=== PATIENT | female | born 1955 | race Caucasian/White ===

== ENCOUNTER 2018-11-17 04:48 | Inpatient (IN) ==
--- NOTE | 2018-10-31 08:58 | PAT Medication Instructions ---
Medication Instructions Date of Service October 31, 2018 Home Medications diclofenac sodium 75 mg PO BID diphenhydramine HCl [Benadryl] 25 - 50 mg PO HS estradiol 1 mg PO QAM levothyroxine 100 mcg PO QAM multivitamin 1 tab PO QAM omega 1-xhx-qhz-fish oil [Fish Oil] 1 cap PO BID turmeric 2,000 mg PO QAM ASK your surgeon for instructions diclofenac sodium 75 mg PO BID STOP taking 2 weeks before surgery omega 7-gfr-mrw-fish oil [Fish Oil] 1 cap PO BID turmeric 2,000 mg PO QAM DO NOT take the morning of surgery multivitamin 1 tab PO QAM Take morning of surgery With a small sip of water, OTHERWISE NOTHING TO EAT OR DRINK AFTER MIDNIGHT: estradiol 1 mg PO QAM levothyroxine 100 mcg PO QAM Take evening before surgery diphenhydramine HCl [Benadryl] 25 - 50 mg PO HS Other Notes If you have any questions please call us at [phone] or [phone] or [phone] or [phone]
--- NOTE | 2018-10-31 11:16 | Anesthesiology Consultation ---
Date of Service October 31, 2018 Assessment & Plan (1) Encounter for pre-operative examination: Cardiology clearance 10/30/2018: "Patient is asymptomatic cardiac kaur (never had chest pain, dyspnea, syncope, Hx of MN or CHF). 12 lead ECG shows sinus bradycardia with questionable septal infarct (may be due to lead placement). Given that patient's functional status is good and no symptoms suggested of ischemia or heart failure, patient is low risk for MACE. Will not recommend any further cardiac evaluation. Her Revised Cardiac Risk Index is 0.4%." PCP Clearance 10/30/2018: "Lorena is medically cleared from cardiology standpoint and is cleared for surgery." Chart Review Chart Review: Acceptable Risk for Surgery and Patient seen in Pre Admission Testing Teaching & Discussion Instructed NPO after midnight before surgery, except medications with 15 cc of water. Medication instructions provided according to the PAT guidelines. History Surgery Operation Date: 11/17/18 07:30 Proposed Procedures p Left Total Hip Arthroplasty - Kenneth Nath DO Height/Weight Height: 5 ft 8 in Weight: 68.3 kg Allergies Allergy/AdvReac Type Severity Reaction Status Date / Time No Known Allergies Allergy Verified 10/18/18 08:34 Medications Home Medications Medication Instructions Recorded Confirmed Last Taken diclofenac sodium 75 mg PO BID 10/18/18 10/18/18 Unknown diphenhydramine HCl [Benadryl] 25 - 50 mg PO HS 10/18/18 10/18/18 Unknown estradiol 1 mg PO QAM 10/18/18 10/18/18 Unknown levothyroxine 100 mcg PO QAM 10/18/18 10/18/18 Unknown multivitamin 1 tab PO QAM 10/18/18 10/18/18 Unknown omega 7-fvh-cui-fish oil [Fish Oil] 1 cap PO BID 10/18/18 10/18/18 Unknown turmeric 2,000 mg PO QAM 10/18/18 10/18/18 Unknown Past Medical History Medical History Abnormal EKG Done at PCP clearance -- pt sent for cardio clearance same day because of this. Cardiology reviewed EKG, felt possibly due to lead placement, no need for further cardiac evaluation due to lack of cardiopulmonary symptoms. Arthritis Cancer H/O CERVICAL, S/P TOTAL HYSTERECTOMY Hyperlipidemia Hypothyroidism Exercise / Class Metabolic Activity II 4-5 Yardwork/Stairs/Walk up hill (denies CP or SOB with activity/stairs) Past Family History Family History Brother Family hx of colon cancer Grandfather (Maternal) Family hx of colon cancer Father Family history of diabetes mellitus Past Surgical History Surgical History History of carpal tunnel release LEFT History of colonoscopy History of hysterectomy Past Anesthesia History No Hx of Anesthesia Complications and No Family Hx of Anesthesia Complications AND "SLOW TO WAKE UP"-WITH HYSTERECTOMY, SOME NAUSEA. History of PONV No Hx of PONV (nausea only, single episode) and Hx of Motion Sickness Social History Smoking Status: Never smoker Do You Dip or Chew Tobacco: No Hx Alcohol Use: No Hx Substance Use: No substance use type: does not use Review of Systems Pt denies any recent chest pain, shortness of breath, palpitations, cough, fever or URI. Physical Exam Vital Signs BP: 130/79 P: 61bpm SPO2: 96% RA T: 97.9 F R: 12 ENMT Mouth: + dental restorations (crowns); no chipped teeth and no loose teeth Thyromental Distance: < 3.5 Finger Breadths (2.5) Mallampati Class: I Neck normal visual inspection; neck extension not limited Respiratory normal respiratory effort Auscultation: lungs clear to auscultation bilaterally Cardiovascular Rate/Rhythm: regular rate and regular rhythm Heart Sounds: no murmur Extremities: no edema Testing Laboratory Results 10/31/18 11:23 10/31/18 11:23 PT 10.0 Seconds (9.0-12.0) 10/31/18 11:23 INR 1.0 (0.9-1.1) 10/31/18 11:23 APTT 26.1 Seconds (21.0-31.0) 10/31/18 11:23 Hemoglobin A1c 5.6 % (4.5-5.6) 10/31/18 11:23 Blood Type O Negative 10/31/18 11:23 Antibody Screen NEGATIVE 10/31/18 11:23 11/02/18 UA: negative Electrocardiogram Date: 10/30/18 Findings: + SB @ (56) Low voltage QRS, consider pulmonary disease, pericardial effusion, or normal variant. Septal infarct, age undetermined. Chest X-Ray Date: 11/01/18 Findings: + NAD
[2018-10-31 12:26] LABS: Basophils # (auto) 0.01 K/uL (0-0.2); Basophils % (auto) 0.2 %; Eosinophils # (auto) 0.16 K/uL (0-0.5); Eosinophils % (auto) 3.2 %; Hematocrit (blood only) 40.6 % (37-47); Hemoglobin 13.7 g/dL (12.0-16.0); Immature Granulocytes # (auto) 0.01 K/uL (0.00-0.02); Immature Granulocytes % (auto) 0.2 %; Lymphocytes # (auto) 1.26 K/uL (1.2-3.4); Lymphocytes % (auto) 25.4 %; Mean Corpuscular Hgb Conc 33.7 g/dL (32-36); Mean Corpuscular Volume 86.6 fL (80-100); Mean Platelet Volume 11.1 fL (7.4-10.4); Monocytes # (auto) 0.39 K/uL (0.11-0.59); Monocytes % (auto) 7.9 %; Neutrophils # (auto) 3.13 K/uL (1.4-6.5); Neutrophils % (auto) 63.1 %; Platelet Count 335 K/uL (130-400); RDW Coefficient of Variation 12.8 % (11.5-14.5); RDW Standard Deviation 40.5 fL (36.4-46.3); Red Blood Count 4.69 M/uL (4.2-5.4); White Blood Count 4.96 K/uL (4.8-10.8)
[2018-10-31 12:33] LABS: Albumin Level 3.5 gm/dl (3.4-5.0); BUN Creatinine Ratio 17.3 (10-20); Creatinine Clr Calc Pharmacy 83.9 ml/min; Est GFR (African American) 106.5; Est GFR (Non-African American) 91.9; Potassium 3.6 mmol/L (3.5-5.1)
[2018-10-31 12:40] LABS: Partial Thromboplastin Time 26.1 Seconds (21.0-31.0)
[2018-10-31 12:56] LABS: Estimated Average Glucose 114 mg/dl; Hemoglobin A1C 5.6 % (4.5-5.6)
--- NOTE | 2018-11-16 16:53 | History & Physical Report ---
Date of Service November 16, 2018 Assessment & Plan (1) Osteoarthritis of left hip: Schedule left MITCH for 11.17.18. All potential risks, benefits, complications, alternatives, and rehab have been discussed with the patient and she wishes to proceed. Plan for ASA 81 mg BID x 30 days for DVT prophylaxis. History of Present Illness Chief Complaint: left hip pain Primary Care Provider: Valentina Collier PA-C This is a patient with chronic left hip pain secondary to DJD of the hip. She was treated conservatively, however, she has failed all conservative management. She is being set up for MITCH. Allergies Allergy/AdvReac Type Severity Reaction Status Date / Time No Known Allergies Allergy Verified 10/18/18 08:34 Home Medications Home Medications Medication Instructions Recorded Confirmed Type diclofenac sodium 75 mg PO BID 10/18/18 10/18/18 History diphenhydramine HCl [Benadryl] 25 - 50 mg PO HS 10/18/18 10/18/18 History estradiol 1 mg PO QAM 10/18/18 10/18/18 History levothyroxine 100 mcg PO QAM 10/18/18 10/18/18 History multivitamin 1 tab PO QAM 10/18/18 10/18/18 History omega 4-nzr-rcd-fish oil [Fish Oil] 1 cap PO BID 10/18/18 10/18/18 History turmeric 2,000 mg PO QAM 10/18/18 10/18/18 History Past Med/Surg History Medical History Abnormal EKG Done at PCP clearance -- pt sent for cardio clearance same day because of this. Cardiology reviewed EKG, felt possibly due to lead placement, no need for further cardiac evaluation due to lack of cardiopulmonary symptoms. Arthritis Cancer H/O CERVICAL, S/P TOTAL HYSTERECTOMY Hyperlipidemia Hypothyroidism Surgical History History of carpal tunnel release LEFT History of colonoscopy History of hysterectomy Family History Brother Family hx of colon cancer Grandfather (Maternal) Family hx of colon cancer Father Family history of diabetes mellitus Social History Preferred Language: Bangladeshi Communication Ability: Effective Mortgage Manager Required: No Beliefs That Will Affect Care: None Current Living Situation: Spouse Other Information That Helps Us Care for You: No Feels Safe at Home: Yes Safety Concerns: Feels Safe At This Time Smoking Status: Never smoker Do You Dip or Chew Tobacco: No ; Second Hand Exposure: Yes (WAS-SPOUSE USED TO SMOKE) ; Hx Alcohol Use: No Hx Substance Use: No Physical Exam Constitutional: well developed and well nourished; no acute distress ENMT: external ear and nose normal, oropharynx normal Neck: trachea midline, no thyromegaly Respiratory: normal respiratory effort, lungs clear to auscultation Cardiovascular: Rate/Rhythm: regular rate and regular rhythm Gastrointestinal (Abdomen): normal bowel sounds, soft, nontender, no hepatosplenomegaly Musculoskeletal: Gait: + antalgic gait (left) Hip: + limited ROM of hip (with left internal/external rotation), + hip ROM with crepitation, + joint line tenderness (left groin) and + ATIF test positive (left); no deformity, no skin erythema and no ecchymosis Skin: no rashes, warm and dry Neurologic: normal touch/pain/proprioception Psychiatric: A+Ox3, euthymic affect Lymphatic: no cervical or axillary lymphadenopathy
[2018-11-17] MEDS ORDERED: BUPIVACAINE 0.5 % 5 MG/1 ML PF 10ML VIAL ONE (05:59)
[2018-11-17] MEDS ORDERED: ROPIVACAINE 0.5% HCL/PF 150 MG, BUPIVACAINE 0.5% MPF 30 ML, EPINEPHrine 30MG/30ML (OR U... INSTIL SCH (06:00)
[2018-11-17] MEDS ORDERED: LR 500ML BOLUS, THEN 15ML/HR IV SCH (06:00)
[2018-11-17] MEDS ORDERED: METOCLOPRAMIDE HCL 10 MG TABLET PO SCH (06:00)
[2018-11-17] MEDS ORDERED: CEFAZOLIN 1000MG 1,000 MG/7.5 ML SYR IV SCH (06:00)
[2018-11-17] MEDS ORDERED: dexAMETHasone 4 MG TAB PO SCH (06:00)
[2018-11-17] MEDS ORDERED: GABAPENTIN 600 MG DOSE PO SCH (06:00)
[2018-11-17] MEDS ORDERED: VANCOMYCIN HCL 1,000 MG/270 ML BAG IV SCH (06:00)
[2018-11-17] MEDS ORDERED: CeleBREX 200 MG CAP PO SCH (06:00)
[2018-11-17] MEDS ORDERED: ACETAMINOPHEN 500 MG TAB PO SCH (06:00)
[2018-11-17] MEDS ORDERED: FAMOTIDINE 20 MG TAB PO SCH (06:00)
[2018-11-17] MEDS ORDERED: fentaNYL citrate 100 MCG/2 ML VIAL ONE (06:40)
[2018-11-17] MEDS ORDERED: PROPOFOL IV EMULSION 10 MG/ML 20 ML VIAL IV ONE ×2 (06:40)
[2018-11-17] MEDS ORDERED: MIDAZOLAM HCL 1 MG/ML 2ML VIAL ONE ×2 (06:40)
[2018-11-17] MEDS ORDERED: LIDOCAINE HCL 2% 2 ML VIAL/AMP(20MG/ML) INFIL ONE (06:40)
[2018-11-17] MEDS ORDERED: KETAMINE HCL INJ 50 MG/ML 10 ML VIAL ONE (06:49)
[2018-11-17] MEDS ORDERED: HYDROmorphone INJ 2 MG/ML SYR/VIAL IV PRN (07:06)
[2018-11-17] MEDS ORDERED: ePHEDrine sulfate 50 MG/ML AMP IV PRN (07:06)
[2018-11-17] MEDS ORDERED: ATROPINE SULFATE 0.1 MG/ML 10ML SYR IV PRN (07:06)
[2018-11-17] MEDS ORDERED: ORTHO JOINT ANESTHETIC ONE (07:21)
[2018-11-17] MEDS ORDERED: BACITRACIN INJ 50,000 UNIT VIAL ONE (07:21)
--- NOTE | 2018-11-17 07:31 | History & Physical Bridge Note ---
Date of Service November 17, 2018 History & Physical Bridge Note I have examined the patient, reviewed the History & Physical and in the interval since the performance of the History & Physical I have noted the following changes of clinical significance: no changes noted
[2018-11-17] MEDS ORDERED: TRANEXAMIC ACID 1,000 MG in 0.9 % SODIUM CHLORIDE 100 ML IV ONE (07:37)
[2018-11-17] MEDS ORDERED: ONDANSETRON INJ 2 MG/ML 2 ML VIAL ONE (08:26)
[2018-11-17] MEDS ORDERED: ePHEDrine sulfate 50 MG/ML SYR ONE (09:41)
[2018-11-17] MEDS ORDERED: PHENYLEPHRINE 100MCG/ML 5ML SYR ONE (09:51)
--- NOTE | 2018-11-17 10:13 | Post Operative Brief Note ---
Immediate Post Op Note v1 Date of Surgery November 17, 2018 Pre & Post Diagnosis Operation Date: 11/17/18 07:30 Pre-Op Diagnosis: Left Hip Degenerative Joint Disease, Left hip osteoarthritis, Left hip pain Post-Op Diagnosis: Left Hip Degenerative Joint Disease, Left hip osteoarthritis, Left hip pain Procedure Operation Date: 11/17/18 07:30 Actual Procedures p Left Total Hip Arthroplasty-Uncemented(Left) - Kenneth Nath DO Surgeon Kenneth Nath DO Mice Raiser Gray Olvera PA-C Estimated Blood Loss 100 Findings Consistent with Post-Op Diagnosis Specimens Bone and tissue left hip Drains Hemovac Drain Anesthesia Type Spinal MAC Complications none Disposition Accompanied Patient To Recovery: No Disposition: Recovery Room
[2018-11-17] MEDS ORDERED: BISACODYL 10 MG SUPP PR PRN (10:40)
[2018-11-17] MEDS ORDERED: ONDANSETRON INJ 2 MG/ML 2 ML VIAL IV PRN (10:40)
[2018-11-17] MEDS ORDERED: NALOXONE HCL 0.4 MG/1 ML VIAL/CARP IV PRN (10:40)
[2018-11-17] MEDS ORDERED: METOCLOPRAMIDE HCL INJ 5 MG/ML 2 ML VIAL IV PRN (10:40)
[2018-11-17] MEDS ORDERED: HYDROmorphone INJ 0.5 MG/0.5 ML SYR IV PRN (10:40)
[2018-11-17] MEDS ORDERED: CEFAZOLIN 2000MG 2,000 MG/15 ML SYR IV STA (10:40)
[2018-11-17] MEDS ORDERED: OXYCODONE HCL IR 5 MG TAB (IMMEDIATE RELEASE) PO PRN (10:40)
[2018-11-17] MEDS ORDERED: MAGNESIUM HYDROXIDE SUSP 30 ML UDC PO PRN (10:40)
--- NOTE | 2018-11-17 11:03 | XRay Report ---
XR hip 1V LT w pelvis CLINICAL HISTORY: 63 years-old Female presenting with status post left total hip arthroplasty. TECHNIQUE: Single frontal view of the pelvis and crosstable lateral view of the left hip were obtaine d. COMPARISON: None. FINDINGS: Postsurgical changes of total left hip arthroplasty. No malalignment or periprosthetic fracture. A butler rgical drain is in place. Expected soft tissue emphysema. Remaining portion of the bony pelvis intact . Moderate degenerative changes of the left hip with osteophytosis and superior medial joint space lo ss. IMPRESSION: Expected postsurgical appearance status post total left hip arthroplasty. Electronically signed by: Jhonatan Stern M.D. 11/17/2018 11:01 AM
--- NOTE | 2018-11-17 11:52 | Anesthesiology Progress Note ---
Date of Service November 17, 2018 Anesthesia Post Procedure Vital Signs Vital Signs: Temp Pulse Pulse Resp BP Pulse Ox 11/17/18 11:35 36.6 C 80 12 142/80 H 99 11/17/18 11:25 76 12 123/78 99 11/17/18 11:15 75 12 120/67 98 11/17/18 11:05 77 16 122/71 99 11/17/18 10:55 75 20 116/78 100 11/17/18 10:45 85 12 116/73 98 11/17/18 10:35 36.5 C 83 17 123/73 99 11/17/18 05:54 36.5 C 63 20 158/90 H 99 Transfer of Care Handoff Completed per policy Notes Mental Status: alert / awake / arousable Patient Amnestic to Procedure: Yes Nausea / Vomiting: adequately controlled Pain: adequately controlled Airway Patency, RR, SpO2: stable & adequate BP & HR: stable & adequate Hydration State: stable & adequate Anesthetic Complications: no major complications apparent and Pt Satisfied with anesthetic care
[2018-11-17] MEDS: SODIUM CHLORIDE 0.9% 1000ML 1,000 ML IV SCH ×2 (12:24→21:29)
[2018-11-17] MEDS: KETOROLAC TROMETHAMINE 15 MG/ML VIAL IV SCH ×2 (13:38→19:58)
[2018-11-17] MEDS: ACETAMINOPHEN 500 MG TAB PO SCH ×2 (13:38→21:29)
[2018-11-17] MEDS: CEFAZOLIN 2000MG 2,000 MG/15 ML SYR IV SCH (15:35)
--- NOTE | 2018-11-17 16:35 | Anesthesiology Progress Note ---
Date of Service November 17, 2018 Anesthesia Post Procedure Vital Signs Vital Signs: Temp Pulse Pulse Pulse Resp BP BP 11/18/18 13:32 36.5 C 75 69 61 16 118/74 101/63 11/18/18 12:45 11/18/18 08:15 36.5 C 61 16 118/74 11/18/18 03:05 36.7 C 69 16 110/66 11/17/18 23:17 36.5 C 61 14 107/67 11/17/18 19:43 36.3 C L 75 16 101/63 Pulse Ox 11/18/18 13:32 99 11/18/18 12:45 99 11/18/18 08:15 100 11/18/18 03:05 97 11/17/18 23:17 97 11/17/18 19:43 99 Transfer of Care Handoff Completed per policy Notes Mental Status: alert / awake / arousable and participated in evaluation Patient Amnestic to Procedure: Yes Nausea / Vomiting: adequately controlled Pain: adequately controlled Airway Patency, RR, SpO2: stable & adequate BP & HR: stable & adequate Hydration State: stable & adequate Anesthetic Complications: no major complications apparent and Pt Satisfied with anesthetic care
[2018-11-17] MEDS ORDERED: TRANEXAMIC ACID 1,000 MG in 0.9 % SODIUM CHLORIDE 100 ML IV SCH (16:40)
--- NOTE | 2018-11-17 19:12 | Operative Report ---
DATE OF OPERATION: 11/17/2018 PREOPERATIVE DIAGNOSES: 1. Left hip degenerative joint disease. 2. Left hip osteoarthritis. 3. Left hip pain. POSTOPERATIVE DIAGNOSES: 1. Left hip degenerative joint disease. 2. Left hip osteoarthritis. 3. Left hip pain. PROCEDURE: Left total hip arthroplasty using uncemented Chivo Accolade II size 5 femoral stem with a Biolox delta V40 ceramic femoral head 36 mm with +5 mm neck length. Two 6.5 mm torque screws, a Trident PSL DEGROOT cluster acetabular shell, 56 mm and a 36 mm 10 degree polyethylene insert. SURGEON: Kenneth Nath DO. TOP FRAME MAKER: Gray Olvera PA-C who was present for patient positioning, sterile prep and drape, management of retractors and instruments. He was present through the critical portions of the case including wound closure, application of sterile dressing and transport of the patient to recovery. ANESTHESIA: Spinal, MAC with intraarticular local. SPECIMENS: Bone and tissue of the left hip. DRAINS: Hemovac x2. COMPLICATIONS: None. BLOOD LOSS: 100 mL. PERTINENT HISTORY: This is a 63-year-old female with chronic progressive and worsening left hip degenerative arthritis. She attempted and failed conservative management including physician-directed home exercises, anti-inflammatories, intraarticular steroid injection, modification of activities, observation, rest and shoe wear modification. Radiographs demonstrate [id number] arthropathy with complete loss of joint space, marginal osteophytes, subchondral sclerosis and subchondral cysts. The patient is scheduled for surgery as indicated. DESCRIPTION OF PROCEDURE: The patient was taken to the Operating Suite and placed supine on the Operating Room table after identification of the consent and identification of the proper operative site the patient was sedated. The patient had previously received a spinal epidural anesthetic. The patient was then placed in the left lateral decubitus position with the affected side up and Stulberg positioning device then used to maintain lateral position of the patient. All bony prominences were properly padded and protected. Axillary roll was placed as standard and the leg lengths were determined to be essentially equal and then the left hip was then sterilely prepped and draped in the usual fashion. 10-blade scalpel incision was made laterally over the greater trochanter. The incision was deepened through the subcutaneous tissue and meticulous hemostasis with electrocautery. Further deepening of the wound through the layer of the fascia was performed with electrocautery and iliotibial band was then incised with electrocautery. Next, Charnley retractor was placed bother anteriorly and posteriorly at the level of the gluteus tendon. Next, electrocautery was used to make an incision in the vastus lateralis and then sweep was made toward the anterior aspect of the patient along the course of the femoral neck and head. Abductor split was then completed. The gluteus minimus and capsule were then incised and then soft tissue was dissected anteriorly. Next as the soft tissue was dissected anteriorly the lesser trochanter was clearly identified and hip was dislocated with relative ease. Hypertrophic osteophytes were noted circumferentially. The hip joint was noted to be noticeably tight. Next the sagittal saw was used to resect the proximal portion of the femoral neck and head approximately one fingerbreadth proximal to the lesser trochanter. Head was then removed and next the labrum was excised from the acetabulum with a 27 blade scalpel and long forceps. Next the wound was irrigated with pulsatile lavage and the pulvinar was then excised from the acetabulum. Appropriate retractors were placed anteriorly superiorly and posteriorly. Next initial acetabular reamer was placed 44 mm medialized to the medial wall and then sequential reaming was performed to size 56 mm. Trial cage was then placed and noted to be stable with excellent fit. Next the wound was irrigated with pulsatile lavage with bacitracin additive and 56 mm Atco trident PSL cup was impacted and then two 30 mm screws were used to stabilize the acetabular shell. Next X3 poly 36 mm was impacted into the shell. Lap sponge was placed over to protect it. Next, attention was turned toward the proximal femur. Box osteotome was used to resect proximal portion of bone followed by first pass small reamer. Next, sequential broaching was performed up to size 5 and the 5 trial was placed followed by +0 36 mm trial head. Next, it was reduced and had excellent fit and feel with minimal shuck and excellent stability in all planes and range of motion. Leg lengths were restored and next all trial implants were removed. The wound was copiously irrigated with pulsatile lavage and size 5 Accolade TMZF x 132 degree final stem was impacted. Next, Biolox ceramic 36 mm head +0 neck was impacted. The construct was reduced. Range of motion was performed and noted to be completely stable with excellent range of motion, improved to greater degree than prior to surgery. Two 10 Chinese single Hemovac drains were placed exiting anterolaterally. Wound was irrigated with pulsatile lavage. Next a #5 Tycron suture was used to close the capsule and gluteus minimum via two small bone gunnels made with 2.4 mm drill bit in the greater trochanter. After Tycron closure was completed and noted to be stable, then 10 Chinese drains were placed followed by closure of the vastus lateralis and the gluteus medius. This was closed with #1 Vicryl sutures. Next, the iliotibial band was closed using interrupted [id number] #1 Vicryl sutures. Next, final irrigation was performed with pulsatile lavage and dermis was closed using buried interrupted 2-0 Vicryl suture. The skin was closed with skin kimberly. Sterile compressive dressing was applied. The patient was then placed supine and taken to recovery in stable condition. I attest to the content of the Intraoperative Record and any orders documented therein. Any exception s are noted below.
[2018-11-17] MEDS: ASPIRIN 81 MG ECTAB PO SCH (19:58)
[2018-11-17] MEDS: DOCUSATE SODIUM 100 MG CAP PO SCH (19:58)
[2018-11-17] MEDS: OMEGA-3 (PURIFIED FISH OIL) 1 GM CAP PO SCH (19:59)
[2018-11-17] MEDS ORDERED: SENNA 8.6 MG TAB PO SCH (21:00)
[2018-11-18] MEDS: CEFAZOLIN 2000MG 2,000 MG/15 ML SYR IV SCH (00:32)
[2018-11-18] MEDS: KETOROLAC TROMETHAMINE 15 MG/ML VIAL IV SCH ×2 (02:23→07:20)
[2018-11-18] MEDS: ACETAMINOPHEN 500 MG TAB PO SCH ×2 (05:43→13:15)
[2018-11-18 06:23] LABS: Basophils # (auto) 0.01 K/uL (0-0.2); Basophils % (auto) 0.1 %; Eosinophils # (auto) 0.01 K/uL (0-0.5); Eosinophils % (auto) 0.1 %; Hematocrit (blood only) 29.7 % (37-47); Hemoglobin 10.1 g/dL (12.0-16.0); Immature Granulocytes # (auto) 0.03 K/uL (0.00-0.02); Immature Granulocytes % (auto) 0.3 %; Lymphocytes # (auto) 1.05 K/uL (1.2-3.4); Lymphocytes % (auto) 8.9 %; Mean Corpuscular Volume 85.6 fL (80-100); Mean Platelet Volume 10.1 fL (7.4-10.4); Monocytes # (auto) 0.99 K/uL (0.11-0.59); Monocytes % (auto) 8.4 %; Neutrophils # (auto) 9.68 K/uL (1.4-6.5); Neutrophils % (auto) 82.2 %; Platelet Count 247 K/uL (130-400); RDW Coefficient of Variation 12.8 % (11.5-14.5); RDW Standard Deviation 39.8 fL (36.4-46.3); Red Blood Count 3.47 M/uL (4.2-5.4); White Blood Count 11.77 K/uL (4.8-10.8)
[2018-11-18] MEDS ORDERED: LEVOTHYROXINE SODIUM 100 MCG TABLET PO SCH (06:30)
[2018-11-18 07:07] LABS: BUN Creatinine Ratio 18.3 (10-20); Calcium 7.7 mg/dl (8.5-10.1); Creatinine Clr Calc Pharmacy 116.7 ml/min; Est GFR (African American) 119.5; Est GFR (Non-African American) 103.1; Potassium 3.7 mmol/L (3.5-5.1)
[2018-11-18] MEDS: ASPIRIN 81 MG ECTAB PO SCH (08:23)
[2018-11-18] MEDS: DOCUSATE SODIUM 100 MG CAP PO SCH (08:23)
[2018-11-18] MEDS: OMEGA-3 (PURIFIED FISH OIL) 1 GM CAP PO SCH (08:24)
[2018-11-18] MEDS ORDERED: ESTRADIOL 1 MG TAB PO SCH (09:00)
[2018-11-18] MEDS ORDERED: TURMERIC PO SCH (09:00)
[2018-11-18] MEDS ORDERED: MULTIVITAMIN TAB PO SCH ×2 (09:00)
--- NOTE | 2018-11-18 11:57 | Orthopedic Progress Note ---
Date of Service November 18, 2018 Assessment & Plan (1) Osteoarthritis of left hip: Plan for DC home today. ASA/TEDs DVT prophylaxis PT/OT Subjective POD#1 left MITCH doing well. walking the halls today. would like to go home. Denies CP, SOB, dizziness. Pain well controlled Physical Exam Physical Exam: Toes mobile, NVI. Calves soft, non tender. Dressing in place and hemovac Results & Data Vital Signs (Past 12 Hours) Vital Signs Temp Pulse Resp BP Pulse Ox 11/18/18 08:15 36.5 C 61 16 118/74 100 11/18/18 03:05 36.7 C 69 16 110/66 97
[2018-11-18] MEDS ORDERED: CeleBREX 200 MG CAP PO SCH (12:00)
--- NOTE | 2018-11-24 11:30 | Discharge Summary ---
Date of Service November 24, 2018 Admission HPI Per Admitting Provider This is a patient with chronic left hip pain secondary to DJD of the hip. She was treated conservatively, however, she has failed all conservative management. She is being set up for MITCH. Principal Diagnosis left hip osteoarthritis Discharge Exam Constitutional well developed and well nourished; no acute distress ENMT external ear and nose normal, oropharynx normal Neck trachea midline, no thyromegaly Respiratory normal respiratory effort, lungs clear to auscultation Cardiovascular Rate/Rhythm: regular rate and regular rhythm Gastrointestinal (Abdomen) normal bowel sounds, soft, nontender, no hepatosplenomegaly Musculoskeletal Hip: + surgical incision (left hip: Silverlon in place) and + limited ROM of hip (with left internal/external rotation); no deformity, no skin erythema and no ecchymosis Skin no rashes, warm and dry Neurologic normal touch/pain/proprioception Psychiatric A+Ox3, euthymic affect Lymphatic no cervical or axillary lymphadenopathy Discharge Data Allergies Allergy/AdvReac Type Severity Reaction Status Date / Time No Known Allergies Allergy Verified 11/17/18 05:49 Consultations 11/18/18 08:00 Consult Case Management - Discharge Planning Routine Procedures Performed Operation Date: 11/17/18 07:30 Actual Procedures p Left Total Hip Arthroplasty-Uncemented(Left) - Kenneth Nath, Hospital Course (1) Osteoarthritis of left hip: The patient underwent a left MITCH on 11.17.18. She was doing well on POD #1. Her pain was controlled. PT went well. She was discharged later on POD #1. Plan for DC home today. ASA/TEDs DVT prophylaxis PT/OT Total Time Total Time Spent Total Time Spent (In Minutes): 30 Total Time Includes: Examination of the Patient, Discharge Planning and Medication Reconciliation Discharge Plan Discharge Items Patient Disposition: Home - Self-Care Reason For Visit: Left Hip Degenerative Joint Disease Discharge Diagnosis: left hip degenerative joint disease Discharge Goals: Decrease discomfort and Improve function Activity: Per 'Additional Instructions' section Weightbearing Comment: as tolerated Non-emergency contact: Primary Care Provider Call non-emergency contact if: your pain is not controlled, your pain is worsening, your temperature is above 101.5, your wound has increased redness and your wound has increased drainage Follow-up/Referrals: Valentina Collier PA-C [Primary Care Provider] - Diet: Regular Addtl Provider Instructions: ACTIVITY RECOMMENDATIONS: SELF CARE INSTRUCTIONS AFTER TOTAL HIP REPLACEMENT Until the incision and soft tissues around your hip have healed, there is a possibility that the hip prosthesis could dislocate. A. Observe the following precautions to prevent dislocation: 1. Don't bend your hip greater than 90 degrees. 2. Avoid crossing your legs or ankles while standing or lying. 3. Sit with your feet placed 6 inches apart. 4. When sitting, keep your knees below your hips. Sit on a firm surface, avoid deep, soft chairs and couches. Use an elevated toilet seat in the bathroom. 5. Don't bend over at the waist. Use a long handled shoehorn and a sock aid to help you put on your shoes and socks. A sales rep can help you picker tender helper objects that are too high or too low to reach. 6. Keep car riding to a minimum for at least one month after surgery. B. Your balance may be shaky for a while. Use crutches or a walker until directed by your doctor. C. Use hand rails when walking on stairs. D. Wear low heeled shoes with non-slip soles. E. Be sure that your floors are free of things that could trip you - throw rugs, electrical cords, small objects. Avoid wet and waxed floors, especially with crutches and canes. F. Try to walk several times a day with rest periods between. G. Continue with all the exercises taught to you in the hospital. Again, make walking a part of your daily routine. H. It is okay to shower if minimal to no drainage from incision. No baths. Do not soak wound. I. Physical Therapy as instructed by your Physician. J. You have a Zipline closure system over your incision. It will remain in place for 14 days after your surgery. If you have a Silverlon dressing or a large bandaid-like silver dressing over your surgical incision, make sure the Zipline under the dressing remains in place after its removal. K. Silverlon: You have a Silverlon dressing on the right knee incision. It will remain in place for 7 days from the day of your surgery. After 7 days, you may remove the dressing, just as you would remove a bandaid. You may shower with the Silverlon dressing in place. However, if you notice any water within the dressing, the dressing should be removed. You may cover the incision with a dry dressing once the silverlon is removed if there is any drainage. SPECIAL CARE INSTRUCTIONS: VERY IMPORTANT TO READ AND REVIEW A. You may still be at risk for phlebitis and blood clots. 1. Wear surgical stockings (JET hose) for one month, 20 hours daily, after surgery to improve circulation and reduce swelling. 2. Take Aspirin (blood thinning medications), as directed by your doctor. 3. Have a pro-time (blood test) drawn according to your doctor's instructions. B. We encourage and will assist you in choosing a home-health agency of your choice. Home health nurses and therapists will monitor your temperature, wound healing and progress in exercise and walking. Home health nurses may also draw the blood for the pro-time test. They may instruct you in decreasing or increasing the amount of Coumadin you take. C. You must take antibiotics before having dental work, bladder, bowel and other surgery. Your doctor will provide you with a permanent card to carry describing precautions. D. Call [facility] if you have a temperature of 101 or greater, redness or swelling around the incision, cloudy drainage from incision, or sudden increase in pain in your hip, not relieved by your regular pain medication. E. Please call the office at if you have any concerns or questions about your operation or recovery. FOLLOW UP VISIT: If appointment is not already scheduled: Please call [facility] to make a follow-up appointment for 2 weeks after your surgery at . Prescriptions: New aspirin [Ecotrin Low Strength] 81 mg Tablet,Delayed Release (Dr/Ec) 81 mg PO BID 30 Days Qty: 60 RF: 0 acetaminophen [Tylenol Extra Strength] 500 mg Tablet 1,000 mg PO Q8 30 Days Qty: 180 RF: 0 oxycodone 5 mg Tablet 5 - 10 mg PO Q4H PRN (Reason: pain) Qty: 30 RF: 0 Continued multivitamin Tablet 1 tab PO QAM RF: 0 levothyroxine 100 mcg Tablet 100 mcg PO QAM RF: 0 estradiol 1 mg Tablet 1 mg PO QAM RF: 0 omega 4-sox-tpj-fish oil [Fish Oil] 1,000 mg (120 mg-180 mg) Capsule 1 cap PO BID RF: 0 turmeric 400 mg Capsule 2,000 mg PO QAM RF: 0 diphenhydramine HCl [Benadryl] 25 mg Capsule 25 - 50 mg PO HS RF: 0 Discontinued diclofenac sodium 75 mg Tablet,Delayed Release (Dr/Ec) 75 mg PO BID RF: 0 Stand-Alone Forms: [facility]/Other Patient Handouts: Surgery Prevent DVT After, Replacement Total Hip Dc Discharge Orders: Discharge Order (Routine); Ordered 11/18/18 Ordered By: Katie Vaca Admission Data Admit Date/Time: 11/17/18 10:40 Attending Provider: Kenneth Nath Admit Provider: Kenneth Nath Primary Care Provider: Valentina Collier Service: Surgical Services Other Interventions: Discharge Summary Assessment (RN) Last Done: 11/18/18 13:32 DC Date/Time DO NOT enter until pt leaves facility: 11/18/18 14:04
== END 2018-11-18 14:04 | disposition home or self-care (01) | DRG 470 ==
LOC: ASU 04:48 → 3E 10:40

== ENCOUNTER 2019-11-02 05:05 | Inpatient (IN) ==
--- NOTE | 2019-09-08 14:25 | PAT Medication Instructions ---
Medication Instructions Date of Service September 08, 2019 Home Medications diphenhydramine HCl [Benadryl] 25 - 50 mg PO HS estradiol 1 mg PO QAM levothyroxine 100 mcg PO QAM multivitamin 1 tab PO QAM omega 9-oun-pdt-fish oil [Fish Oil] 1 cap PO BID turmeric 2,000 mg PO QAM naproxen sodium [Aleve] 220 mg PO UD PRN ASK your surgeon for instructions naproxen sodium [Aleve] 220 mg PO UD PRN estradiol 1 mg PO QAM STOP taking 2 weeks before surgery omega 8-gcv-tmh-fish oil [Fish Oil] 1 cap PO BID turmeric 2,000 mg PO QAM DO NOT take the morning of surgery multivitamin 1 tab PO QAM Take morning of surgery With a small sip of water, OTHERWISE NOTHING TO EAT OR DRINK AFTER MIDNIGHT: levothyroxine 100 mcg PO QAM Take evening before surgery diphenhydramine HCl [Benadryl] 25 - 50 mg PO HS Other Notes If you have any questions please call us at [phone] or [phone] or [phone] or [phone]
--- NOTE | 2019-09-10 11:20 | Anesthesiology Consultation ---
Date of Service September 10, 2019 Assessment & Plan (1) Encounter for pre-operative examination: Chart Review Chart Review: Acceptable Risk for Surgery (pending 10/21 surgeon ordered PCP clearance) and Patient seen in Pre Admission Testing Awaiting surgeon ordered PCP clearance 10/21 Pt educated to check with surgeon's office regarding Covid testing three days prior to surgery. Pt educated she and household members with need to social distance and quarantine especially from time of Covid test to surgery - Pt has hx of slow to wake with anesthesia. No issues with left MITCH but did have awareness during procedure. Teaching & Discussion Pre-Anesthesia Teaching/Discussion Notes: Instructed NPO after midnight before surgery,except medications with 15 cc of water. Medication instructions provided according to the PAT guidelines. History Surgery Operation Date: 11/02/19 07:15 Proposed Procedures p Right Total Hip Arthroplasty - Kenneth Nath DO Height/Weight Height: 5 ft 8.5 in Weight: 70.4 kg Allergies Allergy/AdvReac Type Severity Reaction Status Date / Time PAIN AND COLD MEDICINES AdvReac Unknown NAUSEA, Uncoded 09/03/19 09:01 DIZZINESS Medications Home Medications Medication Instructions Recorded Confirmed Last Taken diphenhydramine HCl [Benadryl] 25 - 50 mg PO HS 10/18/18 09/03/19 11/15/18 21:30 estradiol 1 mg PO QAM 10/18/18 09/03/19 11/16/18 06:00 levothyroxine 100 mcg PO QAM 10/18/18 09/03/19 11/16/18 05:00 multivitamin 1 tab PO QAM 10/18/18 09/03/19 11/16/18 06:00 omega 2-ktf-zvl-fish oil [Fish Oil] 1 cap PO BID 10/18/18 09/03/19 1 Week Ago ~11/10/18 turmeric 2,000 mg PO QAM 10/18/18 09/03/19 1 Week Ago ~11/10/18 naproxen sodium [Aleve] 220 mg PO UD PRN 06/18/19 09/03/19 Unknown Past Medical History Medical History (Updated 09/10/19 @ 11:55 by Shannan Gaytan PA-C) Abnormal EKG HX OF OCTOBER 2018 (SEPTAL INFARCT) - HAD CARDIO EVAL, NO FINDINGS, NO FURTHER TESTING OR FOLLOW RECOMMENDED Arthritis History of anesthesia reaction SLOW TO WAKE UP- NO RE-INTUBATION OR PROLONGED ICU STAY History of cervical cancer No chemo or XRT History of kidney stones No recent issues Hyperlipidemia Hypothyroidism Exercise / Class Metabolic Activity II 4-5 Yardwork/Stairs/Walk up hill (ONE FLIGHT STAIRS - NO CHEST PAIN OR SOB) Past Family History Family History Brother Family hx of colon cancer Grandfather (Maternal) Family hx of colon cancer Father Family history of diabetes mellitus Mother Family history of cancer Past Surgical History Surgical History History of carpal tunnel release LEFT History of colonoscopy History of hysterectomy History of total left hip replacement Past Anesthesia History No Hx of Anesthesia Complications (WITH EXCEPTION OF SLOW TO WAKE- NO ISSUES WITH LEFT MITCH) and No Family Hx of Anesthesia Complications History of PONV No Hx of PONV and Hx of Motion Sickness Social History Smoking Status: Never smoker Do You Dip or Chew Tobacco: No Hx Alcohol Use: No Hx Substance Use: No substance use type: does not use Review of Systems Occ snoring- no sleep study Patient denies chest pain, shortness of breath, dyspnea on exertion, reflux, cough, wheezing, palpitations. No hx of seizures, stroke, [place]. No hx of blood clots or blood transfusions Physical Exam Vital Signs VITALS BP 121/83 P 60 TEMP 98.4 SP02 97% RESP 16 Constitutional no acute distress ENMT Mouth: no loose teeth Thyromental Distance: > or= 3.5 Finger Breadths (3.5) Mallampati Class: II Left top molar cracked Crowns to molars Neck neck extension not limited Respiratory normal respiratory effort; no respiratory distress Auscultation: lungs clear to auscultation bilaterally; no wheezes Cardiovascular Rate/Rhythm: regular rate and regular rhythm Heart Sounds: no murmur Vessels: no carotid bruit Musculoskeletal Spine: no pain with cervical ROM Neurologic moves all extremities Psychiatric Orientation: alert Testing Laboratory Results 09/10/19 11:32 09/10/19 11:32 PT 10.2 Seconds (9.0-12.0) 09/10/19 11:32 INR 1.0 (0.9-1.1) 09/10/19 11:32 APTT 28.3 Seconds (21.0-31.0) 09/10/19 11:32 Hemoglobin A1c 5.6 % (4.5-5.6) 09/10/19 11:32 Urine Color Yellow 09/10/19 11:32 Urine Appearance Clear (Clear) 09/10/19 11:32 Urine pH 7.0 (4.5-7.5) 09/10/19 11:32 Ur Specific Hooper 1.013 (1.000-1.030) 09/10/19 11:32 Urine Protein Negative (Negative) 09/10/19 11:32 Urine Glucose (UA) Negative (Negative) 09/10/19 11:32 Urine Ketones Negative (Negative) 09/10/19 11:32 Urine Nitrite Negative (Negative) 09/10/19 11:32 Ur Leukocyte Esterase Negative (Negative) 09/10/19 11:32 Blood Type O Negative 09/10/19 11:32 Antibody Screen NEGATIVE 09/10/19 11:32 Electrocardiogram Date: 09/10/19 Findings: + SB @ (56) Low voltage QRS Chest X-Ray Date: 09/10/19 Findings: + NAD
--- NOTE | 2019-09-10 12:13 | XRay Report ---
XR chest Pre-admission PA/Lat CLINICAL HISTORY: Preoperative chest COMPARISON STUDY: No previous studies for comparison. FINDINGS: The cardiac and mediastinal contours are normal. There is no evidence of focal pulmonary co nsolidation. There is no evidence of failure. No pleural effusions are visualized.[ IMPRESSION: No active disease in the chest. ACT 112: Negative or not required by law. Electronically signed by: Mendel Beckham M.D. 09/10/2019 12:12 PM
[2019-09-10 13:38] LABS: Basophils # (auto) 0.02 K/uL (0-0.2); Basophils % (auto) 0.4 %; Eosinophils # (auto) 0.26 K/uL (0-0.5); Eosinophils % (auto) 4.8 %; Hematocrit (blood only) 43.3 % (37-47); Hemoglobin 14.1 g/dL (12.0-16.0); Immature Granulocytes # (auto) 0.01 K/uL (0.00-0.02); Immature Granulocytes % (auto) 0.2 %; Lymphocytes # (auto) 1.36 K/uL (1.2-3.4); Lymphocytes % (auto) 25.3 %; Mean Corpuscular Hemoglobin 28.4 pg (25-34); Mean Corpuscular Hgb Conc 32.6 g/dL (32-36); Mean Corpuscular Volume 87.3 fL (80-100); Mean Platelet Volume 12.1 fL (7.4-10.4); Monocytes # (auto) 0.53 K/uL (0.11-0.59); Monocytes % (auto) 9.9 %; Neutrophils % (auto) 59.4 %; Platelet Count 332 K/uL (130-400); RDW Coefficient of Variation 13.1 % (11.5-14.5); RDW Standard Deviation 41.8 fL (36.4-46.3); Red Blood Count 4.96 M/uL (4.2-5.4); White Blood Count 5.38 K/uL (4.8-10.8)
[2019-09-10 13:42] LABS: Appearance Urine Clear (Clear); Bilirubin Urine Negative (Negative); Blood Urine Negative (Negative); Color Urine Yellow; Glucose Urine UA Negative (Negative); Ketones Urine Negative (Negative); Leukocyte Esterase Urine Negative (Negative); Nitrite Urine Negative (Negative); Protein Urine Negative (Negative); Specific Gravity Urine 1.013 (1.000-1.030); Urobilinogen Urine Negative (Negative)
[2019-09-10 13:45] LABS: Partial Thromboplastin Time 28.3 Seconds (21.0-31.0); Prothrombin Time 10.2 Seconds (9.0-12.0)
[2019-09-10 14:09] LABS: Estimated Average Glucose 114 mg/dl; Hemoglobin A1C 5.6 % (4.5-5.6)
[2019-09-10 14:12] LABS: Albumin Level 3.7 gm/dl (3.4-5.0); BUN Creatinine Ratio 25.5 (10-20); Calcium 8.9 mg/dl (8.5-10.1); Creatinine Clr Calc Pharmacy 88.1 ml/min; Est GFR (African American) 108.7; Est GFR (Non-African American) 93.7; Potassium 3.9 mmol/L (3.5-5.1)
--- NOTE | 2019-09-11 06:05 | Electrocardiogram Report ---
Test Reason : Blood Pressure : / mmHG Vent. Rate : 056 BPM Atrial Rate : 056 BPM P-R Int : 138 ms QRS Dur : 082 ms QT Int : 440 ms P-R-T Axes : 036 086 081 degrees QTc Int : 424 ms Sinus bradycardia Low voltage QRS Borderline ECG No previous ECGs available Confirmed by Ethan Morgan ([id number]) on 09/11/2019 6:05:15 AM Referred By: Kenneth Nath Confirmed By:Ethan Morgan
--- NOTE | 2019-11-01 16:21 | History & Physical Report ---
Date of Service November 01, 2019 Assessment & Plan (1) Osteoarthritis of right hip: Schedule a Right Total Hip Arthroplasty for 11.02.2019. All potential risks, benefits, complications, alternatives, and rehab have been discussed with the patient and she wishes to proceed. Plan for home with home health upon d/c. ASA 81 mg BID x 4 wks for DVT prophylaxis. History of Present Illness Chief Complaint: right hip pain Primary Care Provider: Valentina Collier PA-C This is a patient with chronic right hip pain that had been treated conservative ly for right hip DJD. She has failed all conservative management and is now being set up for a MITCH. Allergies Allergy/AdvReac Type Severity Reaction Status Date / Time No Known Allergies Allergy Verified 10/30/19 10:00 Home Medications Home Medications Medication Instructions Recorded Confirmed Type diphenhydramine HCl [Benadryl] 25 - 50 mg PO HS 10/18/18 09/03/19 History estradiol 1 mg PO QAM 10/18/18 09/03/19 History levothyroxine 100 mcg PO QAM 10/18/18 09/03/19 History multivitamin 1 tab PO QAM 10/18/18 09/03/19 History omega 2-plq-hln-fish oil [Fish Oil] 1 cap PO BID 10/18/18 09/03/19 History turmeric 2,000 mg PO QAM 10/18/18 09/03/19 History naproxen sodium [Aleve] 220 mg PO UD PRN 06/18/19 09/03/19 History Past Med/Surg History Medical History (Updated 11/01/19 @ 16:19 by Gray Olvera PA-C) Abnormal EKG HX OF OCTOBER 2018 (SEPTAL INFARCT) - HAD CARDIO EVAL, NO FINDINGS, NO FURTHER TESTING OR FOLLOW RECOMMENDED Arthritis History of anesthesia reaction SLOW TO WAKE UP- NO RE-INTUBATION OR PROLONGED ICU STAY History of cervical cancer No chemo or XRT History of kidney stones No recent issues Hyperlipidemia Hypothyroidism Surgical History History of carpal tunnel release LEFT History of colonoscopy History of hysterectomy History of total left hip replacement Family History Brother Family hx of colon cancer Grandfather (Maternal) Family hx of colon cancer Father Family history of diabetes mellitus Mother Family history of cancer Social History Smoking Status: Never smoker Second Hand Exposure: Yes (IN PAST); Do You Dip or Chew Tobacco: No; Tobacco Cessation Education Requested by Patient: No Hx Alcohol Use: No Hx Substance Use: No Preferred Language: Nepalese Communication Ability: Effective Senior Architect/Design Manager Required: No Beliefs That Will Affect Care: None marital status: Current Living Situation: Spouse Other Information That Helps Us Care for You: No Feels Safe at Home: Yes Safety Concerns: Feels Safe At This Time Physical Exam Constitutional: well developed and well nourished; no acute distress ENMT: external ear and nose normal, oropharynx normal Neck: trachea midline, no thyromegaly Respiratory: normal respiratory effort, lungs clear to auscultation Cardiovascular: Rate/Rhythm: regular rate and regular rhythm Gastrointestinal (Abdomen): normal bowel sounds, soft, nontender, no hepatosplenomegaly Musculoskeletal: Gait: + antalgic gait (right) Hip: + limited ROM of hip (right with internal/external rotation), + joint line tenderness (right groin) and + ATIF test positive (right); no skin erythema and no ecchymosis Skin: no rashes, warm and dry Neurologic: normal touch/pain/proprioception Psychiatric: A+Ox3, euthymic affect Speech: normal rate/rhythm/volume of speech Lymphatic: no cervical or axillary lymphadenopathy
[2019-11-02] MEDS ORDERED: CeleBREX 200 MG CAP PO SCH (06:00)
[2019-11-02] MEDS ORDERED: dexAMETHasone 4 MG TAB PO SCH (06:00)
[2019-11-02] MEDS ORDERED: LR 500ML BOLUS, THEN 15ML/HR IV SCH (06:00)
[2019-11-02] MEDS ORDERED: ACETAMINOPHEN 500 MG TAB PO SCH (06:00)
[2019-11-02] MEDS ORDERED: METOCLOPRAMIDE HCL 10 MG TABLET PO SCH (06:00)
[2019-11-02] MEDS ORDERED: GABAPENTIN 600 MG DOSE PO SCH (06:00)
[2019-11-02] MEDS ORDERED: ROPIVACAINE 0.5% HCL/PF 150 MG, BUPIVACAINE 0.5% MPF 30 ML, EPINEPHrine 30MG/30ML (OR U... INSTIL SCH (06:00)
[2019-11-02] MEDS ORDERED: CEFAZOLIN 1000MG 1,000 MG/7.5 ML SYR IV SCH (06:00)
[2019-11-02] MEDS ORDERED: FAMOTIDINE 20 MG TAB PO SCH (06:00)
[2019-11-02] MEDS ORDERED: BUPIVACAINE 0.5 % 5 MG/1 ML PF 10ML VIAL ONE (06:30)
[2019-11-02] MEDS ORDERED: PROPOFOL IV EMULSION 10 MG/ML 20 ML VIAL IV ONE ×3 (06:42)
[2019-11-02] MEDS ORDERED: ONDANSETRON INJ 2 MG/ML 2 ML VIAL ONE (06:42)
[2019-11-02] MEDS ORDERED: fentaNYL citrate 100 MCG/2 ML VIAL ONE (06:42)
[2019-11-02] MEDS ORDERED: LIDOCAINE HCL 2% 2 ML VIAL/AMP(20MG/ML) INFIL ONE (06:42)
[2019-11-02] MEDS ORDERED: MIDAZOLAM HCL 1 MG/ML 2ML VIAL ONE (06:42)
[2019-11-02] MEDS ORDERED: ATROPINE SULFATE 0.1 MG/ML 10ML SYR IV PRN (06:57)
[2019-11-02] MEDS ORDERED: ONDANSETRON INJ 2 MG/ML 2 ML VIAL IV PRN ×2 (06:57→12:28)
[2019-11-02] MEDS ORDERED: ePHEDrine sulfate 50 MG/ML AMP IV PRN (06:57)
[2019-11-02] MEDS ORDERED: fentaNYL citrate 100 MCG/2 ML VIAL IV PRN (06:57)
[2019-11-02] MEDS ORDERED: BACITRACIN INJ 50,000 UNIT VIAL ONE (07:00)
[2019-11-02] MEDS ORDERED: ORTHO JOINT ANESTHETIC ONE (07:00)
--- NOTE | 2019-11-02 08:13 | History & Physical Bridge Note ---
Date of Service November 02, 2019 History & Physical Bridge Note I have examined the patient, reviewed the History & Physical and in the interval since the performance of the History & Physical I have noted the following changes of clinical significance: no changes noted
[2019-11-02] MEDS ORDERED: ePHEDrine sulfate 50 MG/ML SYR ONE (09:46)
--- NOTE | 2019-11-02 10:39 | Post Operative Brief Note ---
Immediate Post Op Note v1 Date of Surgery November 02, 2019 Pre & Post Diagnosis Operation Date: 11/02/19 07:15 Pre-Op Diagnosis: Unilateral Primary Osteoarthritis right hip, Right hip degenerative joint disease, right hip pain Post-Op Diagnosis: Unilateral Primary Osteoarthritis right hip, Right hip degenerative joint disease, right hip pain I identified the patient and participated in the time-out.: Yes Procedure Operation Date: 11/02/19 07:15 Actual Procedures p Right Total Hip Arthroplasty(Right) - Kenneth Nath DO Surgeon Kenneth Nath DO Teletype Clerk Mauricio An PA-C Estimated Blood Loss 25 Findings Consistent with Post-Op Diagnosis Specimens Bone and tissue right hip Drains Hemovac Drain (10 fr) Anesthesia Type MAC Spinal Regional Complications none Disposition Accompanied Patient To Recovery: No Disposition: Recovery Room
--- NOTE | 2019-11-02 11:14 | Anesthesiology Progress Note ---
Date of Service November 02, 2019 Anesthesia Post Procedure Vital Signs Vital Signs: Temp Pulse Pulse Resp BP BP Pulse Ox 11/02/19 11:05 81 14 141/77 H 100 11/02/19 10:57 97.3 F L 84 12 139/72 100 11/02/19 05:28 97.9 F 55 L 18 155/87 H 98 Pain Intensity Right Hip: Pain Intensity: 4 Transfer of Care Handoff Completed per policy Notes Mental Status: alert / awake / arousable and participated in evaluation Patient Amnestic to Procedure: Yes Nausea / Vomiting: adequately controlled Pain: adequately controlled Airway Patency, RR, SpO2: stable & adequate BP & HR: stable & adequate Hydration State: stable & adequate Neuraxial Anesthesia: was administered and sensory block is resolving Anesthetic Complications: no major complications apparent and Pt Satisfied with anesthetic care
--- NOTE | 2019-11-02 11:26 | XRay Report ---
XR hip 1V RT w pelvis CLINICAL HISTORY: IN PACU - A/P PELVIS and LATERAL HIP COMPARISON: 11/17/2018 DISCUSSION: Anatomic alignment post total right hip arthroplasty. Good contact between prosthetic and underlying bone. Pre-existing total left hip prosthetic. Expected postoperative soft tissue change. IMPRESSION: Anatomic alignment post total right hip arthroplasty. ACT 112: Negative or not required by law. The above report was generated using voice recognition software. It may contain grammatical, syntax or spelling errors. Electronically signed by: Polo Tony M.D. 11/02/2019 11:25 AM
[2019-11-02] MEDS ORDERED: HYDROmorphone INJ 0.5 MG/0.5 ML SYR IV PRN (12:28)
[2019-11-02] MEDS ORDERED: OXYCODONE HCL IR 5 MG TAB (IMMEDIATE RELEASE) PO PRN (12:28)
[2019-11-02] MEDS ORDERED: NALOXONE HCL 0.4 MG/1 ML VIAL/CARP IV PRN (12:28)
[2019-11-02] MEDS ORDERED: MAGNESIUM HYDROXIDE SUSP 30 ML UDC PO PRN (12:28)
[2019-11-02] MEDS ORDERED: bisacodyL 10 MG SUPP PR PRN (12:28)
[2019-11-02] MEDS: SODIUM CHLORIDE 0.9% 1000ML 1,000 ML IV SCH ×2 (12:37→22:19)
[2019-11-02] MEDS: ACETAMINOPHEN 500 MG TAB PO SCH ×2 (14:17→21:34)
[2019-11-02] MEDS: CEFAZOLIN 2000MG 2,000 MG/15 ML SYR IV SCH (16:57)
[2019-11-02] MEDS ORDERED: SENNA 8.6 MG TAB PO SCH (21:00)
[2019-11-02] MEDS: ASPIRIN 81 MG ECTAB PO SCH (21:34)
[2019-11-02] MEDS: DOCUSATE SODIUM 100 MG CAP PO SCH (21:34)
[2019-11-03] MEDS: CEFAZOLIN 2000MG 2,000 MG/15 ML SYR IV SCH (00:20)
[2019-11-03] MEDS: ACETAMINOPHEN 500 MG TAB PO SCH ×2 (05:43→15:02)
[2019-11-03] MEDS ORDERED: LEVOTHYROXINE SODIUM 100 MCG TABLET PO SCH (06:30)
[2019-11-03 06:36] LABS: Eosinophils # (auto) 0.01 K/uL (0-0.5); Eosinophils % (auto) 0.1 %; Hematocrit (blood only) 32.2 % (37-47); Hemoglobin 10.9 g/dL (12.0-16.0); Immature Granulocytes # (auto) 0.03 K/uL (0.00-0.02); Immature Granulocytes % (auto) 0.2 %; Lymphocytes # (auto) 1.15 K/uL (1.2-3.4); Mean Corpuscular Hemoglobin 29.3 pg (25-34); Mean Corpuscular Hgb Conc 33.9 g/dL (32-36); Mean Corpuscular Volume 86.6 fL (80-100); Mean Platelet Volume 10.7 fL (7.4-10.4); Monocytes # (auto) 1.09 K/uL (0.11-0.59); Monocytes % (auto) 7.6 %; Neutrophils # (auto) 12.14 K/uL (1.4-6.5); Neutrophils % (auto) 84.1 %; Platelet Count 282 K/uL (130-400); RDW Coefficient of Variation 13.4 % (11.5-14.5); RDW Standard Deviation 42.1 fL (36.4-46.3); Red Blood Count 3.72 M/uL (4.2-5.4); White Blood Count 14.42 K/uL (4.8-10.8)
[2019-11-03 07:03] LABS: BUN Creatinine Ratio 19.7 (10-20); Calcium 8.2 mg/dl (8.5-10.1); Creatinine Clr Calc Pharmacy 105.1 ml/min; Est GFR (African American) 115.2; Est GFR (Non-African American) 99.4; Potassium 3.8 mmol/L (3.5-5.1)
[2019-11-03] MEDS: DOCUSATE SODIUM 100 MG CAP PO SCH (07:21)
[2019-11-03] MEDS: ASPIRIN 81 MG ECTAB PO SCH (07:21)
[2019-11-03] MEDS ORDERED: MULTIVITAMIN TAB PO SCH (09:00)
[2019-11-03] MEDS ORDERED: estradioL 1 MG TAB PO SCH (09:00)
--- NOTE | 2019-11-03 10:14 | Orthopedic Progress Note ---
Date of Service November 03, 2019 Assessment & Plan (1) Osteoarthritis of right hip: POD #1, Right MITCH PT/ OT DVT proph- ASA D/C plans- Home today after PT. Admission and Anticipated Discharge Date Admission Date: November 02, 2019 Subjective POD #1, Doing well. Denies SOB, CP, N/V. States oxycodone makes her "loopy" would prefer something else. Pain controlled well. Wishes to D/C today. Physical Exam Physical Exam: Right hip dressings/ prevena c/d/i, no drainage. Toes/ ankle mobile. No calf tenderness. A&Ox3. Results & Data ([facility]) Vital Signs (Past 12 Hours) Vital Signs Temp Pulse Pulse Resp BP Pulse Ox 11/03/19 07:47 36.4 C L 60 20 131/78 98 11/03/19 02:07 36.7 C 61 16 137/72 95 11/02/19 23:25 36.7 C 59 L 16 109/60 97
[2019-11-03] MEDS: TRAMADOL HCL 50 MG TABLET PO PRN ×2 (11:18→15:03)
[2019-11-03 11:49] VITALS: BP 136/82; TEMP 98.4; O2SAT 99
[2019-11-03 13:48] VITALS: PULSE 61
--- NOTE | 2019-11-05 13:28 | Discharge Summary ---
Date of Service November 05, 2019 Admission HPI Per Admitting Provider This is a patient with chronic right hip pain that had been treated conservatively for right hip DJD. She has failed all conservative management and is now being set up for a MITCH. Admission Exam Per Admitting Provider Constitutional: well developed and well nourished; no acute distress ENMT: external ear and nose normal, oropharynx normal Neck: trachea midline, no thyromegaly Respiratory: normal respiratory effort, lungs clear to auscultation Cardiovascular: Rate/Rhythm: regular rate and regular rhythm Gastrointestinal (Abdomen): normal bowel sounds, soft, nontender, no hepatosplenomegaly Musculoskeletal: Gait: + antalgic gait (right) Hip: + limited ROM of hip (right with internal/external rotation), + joint line tenderness (right groin) and + ATIF test positive (right); no skin erythema and no ecchymosis Skin: no rashes, warm and dry Neurologic: normal touch/pain/proprioception Psychiatric: A+Ox3, euthymic affect Speech: normal rate/rhythm/volume of speech Lymphatic: no cervical or axillary lymphadenopathy Principal Diagnosis Right hip DJD Discharge Data Allergies Allergy/AdvReac Type Severity Reaction Status Date / Time No Known Allergies Allergy Verified 11/02/19 05:27 Consultations 11/03/19 08:00 Consult Case Management - Discharge Planning Routine Procedures Performed Operation Date: 11/02/19 07:15 Actual Procedures p Right Total Hip Arthroplasty(Right) - Kenneth Nath DO Hospital Course (1) Osteoarthritis of right hip: Assessment & Plan (1) Osteoarthritis of right hip: POD #1, Right MITCH PT/ OT - Progressing with PT DVT proph- ASA D/C plans- Home today after PT. Admission and Anticipated Discharge Date Admission Date: November 02, 2019 Subjective POD #1, Doing well. Denies SOB, CP, N/V. States oxycodone makes her "loopy" would prefer something else. Switched to Tramadol for dc. Pain controlled well. Hgb 10.9 Wishes to D/C today. Physical Exam Physical Exam: Right hip dressings/ prevena c/d/i, no drainage. Toes/ ankle mobile. No calf tenderness. A&Ox3. Results & Data ([facility]) Vital Signs (Past 12 Hours) Vital Signs Temp Pulse Pulse Resp BP Pulse Ox 11/03/19 07:47 36.4 C L 60 20 131/78 98 11/03/19 02:07 36.7 C 61 16 137/72 95 11/02/19 23:25 36.7 C 59 L 16 109/60 97 Total Time Total Time Spent Total Time Spent (In Minutes): 5 Discharge Plan Discharge Items Patient Disposition: Home - Self-Care Reason For Visit: Unilateral Primary Osteoarthritis, Right hip Discharge Diagnosis: Same Activity: Per Instructions section Non-emergency contact: Surgeon Call non-emergency contact if: you have any medication questions, your pain is not controlled, your pain is concerning for you, your temperature is above 101, your wound has increased redness, your wound has increased drainage and your wound pain has increased Follow-up/Referrals: Valentina Collier PA-C [Primary Care Provider] - Diet: Regular Addtl Attending Provider Instructions: ACTIVITY RECOMMENDATIONS: SELF CARE INSTRUCTIONS AFTER TOTAL HIP REPLACEMENT Until the incision and soft tissues around your hip have healed, there is a possibility that the hip prosthesis could dislocate. A. Observe the following precautions to prevent dislocation: 1. Don't bend your hip greater than 90 degrees. 2. Avoid crossing your legs or ankles while standing or lying. 3. Sit with your feet placed 6 inches apart. 4. When sitting, keep your knees below your hips. Sit on a firm surface, avoid deep, soft chairs and couches. Use an elevated toilet seat in the bathroom. 5. Don't bend over at the waist. Use a long handled shoehorn and a sock aid to help you put on your shoes and socks. A phlebotomy lab assistant can help you cotton picker objects that are too high or too low to reach. 6. Keep car riding to a minimum for at least one month after surgery. B. Your balance may be shaky for a while. Use crutches or a walker until directed by your doctor. C. Use hand rails when walking on stairs. D. Wear low heeled shoes with non-slip soles. E. Be sure that your floors are free of things that could trip you - throw rugs, electrical cords, small objects. Avoid wet and waxed floors, especially with crutches and canes. F. Try to walk several times a day with rest periods between. G. Continue with all the exercises taught to you in the hospital. Again, make walking a part of your daily routine. SPECIAL CARE INSTRUCTIONS: VERY IMPORTANT TO READ AND REVIEW A. You may still be at risk for phlebitis and blood clots. 1. Wear surgical stockings (JET hose) for 2 weeks after surgery to improve circulation and reduce swelling. 2. Take Aspirin 81mg twice daily for 4 weeks or as directed by your doctor. This is your blood thinner. 3. High risk patients may be prescribed a stronger blood thinner if necessary. 4. If you are on Coumadin normally, your family doctor/blast furnace helper should monitor your blood work. Expect a phone call the day of or the day after bloodwork is drawn to adjust your dosage. B. You must take antibiotics before having dental work, bladder, bowel and other surgery. Your doctor will provide you with a permanent card to carry describing precautions. C. Call [facility] if you have a fever, redness or swelling around the incision, cloudy drainage from incision, or sudden increase in pain in your hip, not relieved by your regular pain medication. D. Please call the office at if you have any concerns or questions about your operation or recovery. * YOU MAY SHOWER, NO TUB BATHS UNTIL CLEARED BY YOUR DOCTOR. * WEAR JET HOSE 20 HOURS PER DAY FOR 2 WEEKS. * YOU SHOULD USE A WALKER OR CRUTCHES FOR 2-4 WEEKS. THIS WILL HELP PREVENT STRAIN ON YOUR HIP MUSCLE AND ALLOW IT TO HEAL PROPERLY. YOU MAY WEAN TO A CANE TOLERATED. * MOST PATIENTS WILL HAVE HOME NURSING FOR THERAPY. IF YOU DECIDE TO DO OUTPATIENT PHYSICAL THERAPY, PLEASE SCHEDULE THIS 3 TIMES PER WEEK. * YOU MAY HAVE A LARGE, BAND-CARMEN LIKE DRESSING (SILVERON). THIS WILL REMAIN ON YOUR INCISION FOR 7 DAYS, THEN CAN BE REMOVED. IF INCISION IS LEAKING THROUGH DRESSING, PLEASE CALL THE OFFICE . FOLLOW UP VISIT: If appointment is not already scheduled: Please call [facility] to make a follow-up appointment for 2 weeks after your surgery at . Prevena- This is a large suction dressing covering your incision. This will help pull any excess drainage from the wound and allow your incision to heal properly. You may shower with this if you can keep the unit outside of the shower. If any bleeding or leakage is noted please call your doctor's office. This will remain on your incision for 7 days and then should be removed. This can be done yourself or by the home nursing staff if applicable. The entire unit is disposable once removed. Once removed, keep incision clean and dry. If redness or drainage is noted, please call your surgeon. Pending Studies at Discharge: No Stand-Alone Forms: My [facility] [employer] Smoking Cessation Medications and DC Order Prescriptions: New acetaminophen 500 mg Tablet 1,000 mg PO Q8 30 Days Qty: 180 RF: 0 aspirin 81 mg Tablet,Delayed Release (Dr/Ec) 81 mg PO BID 30 Days Qty: 60 RF: 0 tramadol 50 mg Tablet 50 - 100 mg PO Q4H PRN (Reason: pain) Qty: 30 RF: 0 tramadol 50 mg tablet 50 mg PO Q4H PRN (Reason: pain) Qty: 30 RF: 0 Continued multivitamin Tablet 1 tab PO QAM RF: 0 levothyroxine 100 mcg Tablet 100 mcg PO QAM RF: 0 estradiol 1 mg Tablet 1 mg PO QAM RF: 0 turmeric 400 mg Capsule 2,000 mg PO QAM RF: 0 diphenhydramine HCl [Benadryl] 25 mg Capsule 25 - 50 mg PO HS RF: 0 Discontinued omega 7-gce-hpw-fish oil [Fish Oil] 1,000 mg (120 mg-180 mg) Capsule 1 cap PO BID RF: 0 naproxen sodium [Aleve] 220 mg Capsule 220 mg PO UD PRN (Reason: Pain) RF: 0 Discharge Orders: Discharge Order (Routine); Ordered 11/03/19 Ordered By: Polo Bernal Admission Data Admit Date/Time: 11/02/19 11:12 Attending Provider: Kenneth Nath Admit Provider: Kenneth Nath Primary Care Provider: Valentina Collier Other Interventions: Discharge Summary Assessment (RN) Last Done: 11/03/19 13:52 DC Date/Time DO NOT enter until pt leaves facility: 11/03/19 16:00
--- NOTE | 2019-11-05 16:23 | Operative Report (OR) ---
DATE OF OPERATION: 11/02/2019 PREOPERATIVE DIAGNOSES: 1. Right hip degenerative joint disease. 2. Right hip osteoarthritis. 3. Right hip pain. POSTOPERATIVE DIAGNOSES: 1. Right hip degenerative joint disease. 2. Right hip osteoarthritis. 3. Right hip pain. PROCEDURE: Right total hip arthroplasty using a Baird Accolade II Size 5 femoral component with a Biolox 36 mm x +2.5 mm ceramic head, a Trident X3 polyethylene and a Trident II 54 mm cup with two 6.5 mm torque screws. SURGEON: Kenneth Nath DO. TOOL CRIB MANAGER: Mauricio An PA-C who was present for patient positioning, sterile prep and drape, management of retractors and instruments. He was present through the critical portions of the case including wound closure, application of sterile dressing and transport of the patient to recovery. ANESTHESIA: Spinal, MAC regional. SPECIMENS: Bone and tissue, right hip. DRAINS: Hemovac x2. COMPLICATIONS: None. BLOOD LOSS: 25 mL. PERTINENT HISTORY: This is a 64-year-old female who has had chronic progressive and worsening right hip pain, loss of function and loss of range of motion. She has attempted and failed conservative management including physician-directed home exercises, anti-inflammatories, rest, modification of activities, observation, anti-inflammatories, and shoewear modification in addition to use of an assistive device. Radiographs demonstrate end-stage degenerative arthritis of the right hip with loss of joint space, marginal osteophytes, subchondral sclerosis and subchondral cysts. The patient was scheduled for surgery as indicated. OPERATION AND FINDINGS: The patient was taken to the operative suite and placed supine on the Operating Room table. After review of the consent and identification of proper operative site, the patient was sedated and spinal anesthetic was administered. The patient was then placed in lateral decubitus position with the affected side up. The right hip was then sterilely prepped and draped in the usual fashion. Next 10 blade scalpel incision was made centered over the anterior one third of the greater trochanter. The incision was deepened through subcutaneous tissue. Meticulous hemostasis was achieved with electrocautery. Full-thickness skin flaps were developed down to the level of the fascia. Next, the iliotibial band was incised in line with the skin incision. Two moistened surgical towels were applied over the skin and then a Charnley retractor was placed deep to the iliotibial band for retraction. Next, the electrocautery was used to make an incision along the vastus lateralis to the level of the greater trochanter and then this incision was carried anterolateral to the incision line in line with the femoral neck and head. Next, Nevin retractors were placed in the incision and this tissue plane was then developed anteriorly, swept off the anterior aspect of the femur and femoral neck. At this point the femoral neck and head came into view. After Hohmann retractors were placed in the incision sagittal saw was then used to make the neck cut approximately one fingerbreadth proximal to the lesser trochanter. This fragment of bone was then removed and next the femoral head was then removed from the acetabulum using a lobster claw. Hip slide was then used to assist this maneuver. Head was measured, appropriate size was noted. Sequential reaming was then initiated with a 46 mm reamer and then increased in size to 54 mm. A window trial was then impacted into the acetabulum with a stable fit. The trial was then removed after appropriate fit was confirmed and a 54 mm titanium acetabular cup was impacted in to the acetabulum and then stabilized with two 6.5 millimeter screws. Next the double footed retractor was then placed deep in the incision beneath the proximal aspect of the femur to elevate it out of the incision for use of a box osteotome to remove the small fragment of bone from the proximal portion of the femur. Next, the snath handle assembler was then placed in the femoral canal followed by sequential broaching which was placed in neutral anteversion retroversion as dictated by the proximal femoral anatomy. After this was completed two appropriate size trial broach with good fit and fixation proximal calcar reamer was utilized. Next all debris was flushed from the joint and the proximal broach was then positioned to allow placement of the trial head and +2.5 mm neck. This was then reduced, trialed through range of motion with regard to flexion, extension, internal and external rotation and then a Shuck test. After appropriate size determined the trial components were removed. Pulsatile lavage was then used to cleanse the soft tissue, the femoral canal and the acetabulum of any loose debris fragmentation. After this was confirmed, the final femoral component was inserted, impacted and the [place] taper was then dried with the sterile sponge followed by placement of the ceramic Biolox head component and then the hip components were then fully assembled and then reduced into the acetabulum. Range of motion and leg lengths were tested noted to be nearly anatomic. Next two holes were made in the proximal greater trochanter for passage of a #5 FiberWire suture which was used to close the gluteus minimus and capsule and then also reapproximate the gluteus medius. This was then sutured back to the greater trochanter, tied and cut with the hip in slight abduction and internal rotation using a padded Arriola stand. Next, two deep 10-Maltese Hemovac drains were placed exiting the anterolateral aspect of the hip followed by closure of the vastus lateralis with #1 Vicryl sutures. The gluteus meatus was closed using #1 Vicryl sutures. A Charnley retractor was removed. Pulsatile lavage was used to cleanse the tissue planes and then the iliotibial band was then closed using #1 Vicryl. Next, the dermis was closed using buried interrupted 2-0 Vicryl and skin was closed using skin kimberly. Sterile compressive dressing was applied. Abduction pillow was placed between the patient's leg. Patient was then placed supine on the bed and transferred to the hospital bed and then taken to recovery in stable condition. I attest to the content of the Intraoperative Record and any orders documented therein. Any exceptions are noted below. ALDO
== END 2019-11-03 16:00 | disposition home or self-care (01) | DRG 470 ==
LOC: ASU 05:05 → 3N 11:12